=== PATIENT | female | born 1970 | race African-American/Black ===

== ENCOUNTER 2018-04-06 21:38 | Emergency (ER) | payer SELFPAY, OTHER ==
[2018-04-06 22:02] LABS: ADD MAN DIFF? NO
[2018-04-06 22:04] LABS: BASO % 1 % (0-3); EOS # 0.3 x10^3/uL (0.0-0.7); EOS % 6 % (0-3); HEMATOCRIT 40.7 % (36.0-47.0); HEMOGLOBIN 13.6 g/dL (12.0-15.5); LYMPH # 1.9 x10^3/uL (1.0-4.8); LYMPH % 40 % (24-48); MEAN CORPUSCULAR HEMOGLOBIN 31 pg (25-35); MEAN CORPUSCULAR HGB CONC 33 g/dL (31-37); MEAN CORPUSCULAR VOLUME 91 fL (79-100); MONO # 0.6 x10^3/uL (0.0-1.1); MONO % 14 % (0-9); NEUT # 1.9 x10^3uL (1.8-7.7); NEUT % 40 % (31-73); PLATELET COUNT 176 x10^3/uL (140-400); RED BLOOD COUNT 4.46 x10^6/uL (3.50-5.40); WHITE BLOOD COUNT 4.7 x10^3/uL (4.0-11.0)
[2018-04-06] MEDS: amLODIPine BESYLATE 5 MG TABLET PO (22:13)
[2018-04-06] MEDS: PROCHLORPERAZINE 10 MG/2 ML VIAL. IV (22:13)
[2018-04-06] MEDS: IV NORMAL SALINE 500ML BAG 500 ML IV (22:14)
[2018-04-06 22:17] LABS: ANION GAP 8 (6-14); BLOOD UREA NITROGEN 15 mg/dL (7-20); BUN/CREATININE RATIO 17 (6-20); CALCIUM 8.5 mg/dL (8.5-10.1); CARBON DIOXIDE 25 mmol/L (21-32); CHLORIDE 105 mmol/L (98-107); CREATININE 0.9 mg/dL (0.6-1.0); GFR 81.2; GLUCOSE 106 mg/dL (70-99); SODIUM 138 mmol/L (136-145)
[2018-04-06 22:23] LABS: ALBUMIN 3.6 g/dL (3.4-5.0); ALBUMIN/GLOBULIN RATIO 0.8 (1.0-1.7); ALK PHOS 97 U/L (46-116); ALT (SGPT) 30 U/L (14-59); AST (SGOT) 21 U/L (15-37); TOTAL BILIRUBIN 0.4 mg/dL (0.2-1.0); TOTAL PROTEIN 8.2 g/dL (6.4-8.2)
== END 2018-04-06 22:47 | disposition home or self-care (01) ==
LOC: ER 21:38
DX: R51 Headache (principal); I10 Essential (primary) hypertension; Z90.710 Acquired absence of both cervix and uterus; Z79.899 Other long term (current) drug therapy
CPT/HCPCS: 36415; 70450; 80053; 85025; 96374; 99285; J0780; J7040

== ENCOUNTER 2018-09-16 10:06 | Emergency (ER) | payer SELFPAY ==
[~2018-09-16] VITALS: Ht 167.6 cm; Wt 77.1 kg
[~2018-09-16 10:06] MED LIST: HYDR50TA6 PO; IBUP200T77 PO
[2018-09-16 10:40] VITALS: BP 143/88
--- NOTE | 2018-09-16 11:27 | RAD ---
3 view left wrist 09/16/2018 CLINICAL INDICATION: Fall with left wrist pain. COMPARISON: None. FINDINGS: No acute fracture or traumatic malalignment. Joint spaces maintained. Normal alignment of the carpal bones. Visualized soft tissues are unremarkable. IMPRESSION: No acute osseous abnormality. If there is focal snuffbox tenderness, immobilization and repeat radiograph in 10-14 days is recommended for radiographically occult scaphoid fracture. Electronically signed by: Cal Palmer MD (09/16/2018 11:24 AM) [id number]
--- NOTE | 2018-09-16 11:56 | PHYS DOC ---
Past Medical History Past Medical History: Hypertension, Other Additional Past Medical Histor: Eye Injury- Right Past Surgical History: Hysterectomy, Other Additional Past Surgical Histo: HERNIA SURGERY, Eye Surgery Alcohol Use: None Drug Use: None Adult General Chief Complaint Chief Complaint: MECHANICAL FALL [facility] HPI Patient is a 48 year old female who presents with pain to her right knee and left wrist after she fell down stairs proximately 3 days ago. The patient has been walking on the extremity with out problem. There is some mild swelling to the left wrist that she is concerned about. She states that the accident occurred at home. She denies loss of consciousness or any other injury. Review of Systems Review of Systems Constitutional: Denies fever or chills [] Respiratory: Denies cough or shortness of breath [] Cardiovascular: No additional information not addressed in HPI [] GI: Denies abdominal pain, nausea, vomiting, bloody stools or diarrhea [] : Denies dysuria or hematuria [] Musculoskeletal: See history of present illness Integument: Denies rash or skin lesions [] Neurologic: Denies headache, focal weakness or sensory changes [] Endocrine: Denies polyuria or polydipsia [] All other systems were reviewed and found to be within normal limits, except as documented in this note. Allergies Allergies Allergies Coded Allergies Type Severity Reaction Last Updated Verified No Known Drug Allergies 10/27/14 No Physical Exam Physical Exam Constitutional: Well developed, well nourished, no acute distress, non-toxic appearance. [] Neck: Normal range of motion, no tenderness, supple, no stridor. [] Cardiovascular:Heart rate regular rhythm, no murmur [] Lungs & Thorax: Bilateral breath sounds clear to auscultation [] Skin: Warm, dry, no erythema, no rash. [] Back: No tenderness, no CVA tenderness. [] Extremities: tenderness to right knee and left wrist with palpation, no ecchymosis noted to either extremity, no cyanosis, no clubbing, ROM intact, mild edema noted to left wrist, pulses and sensation are intact distal to injuries. [] Neurologic: Alert and oriented X 3, normal motor function, normal sensory function, no focal deficits noted. [] Psychologic: Affect normal, judgement normal, mood normal. [] Current Patient Data Vital Signs Vital Signs Date Time Temp Pulse Resp B/P (MAP) Pulse Ox O2 Delivery O2 Flow Rate FiO2 09/16/18 10:40 98.0 78 16 143/88 (106) 98 Room Air 98.0 EKG EKG [] Radiology/Procedures Radiology/Procedures []PATIENT: ERNIE VERA RACCOUNT: [id number]#: [id number] : 1970 LOCATION: ER AGE: 48 SEX: F EXAM STATUS: REG ER ORD. PHYSICIAN: ALBERTA TAVAREZ APRN REASON: pain after falling down steps PROCEDURE: WRIST 3V LEFT 3 view left wrist 09/16/2018 CLINICAL INDICATION: Fall with left wrist pain. COMPARISON: None. FINDINGS: No acute fracture or traumatic malalignment. Joint spaces maintained. Normal alignment of the carpal bones. Visualized soft tissues are unremarkable. IMPRESSION: No acute osseous abnormality. If there is focal snuffbox tenderness, immobilization and repeat radiograph in 10-14 days is recommended for radiographically occult scaphoid fracture. Electronically signed by: Car Palmer MD (09/16/2018 11:24 AM) [id number] DICTATED and SIGNED BY: CAR PALMER MD DATE: Course & Med Decision Making Course & Med Decision Making Pertinent Labs and Imaging studies reviewed. (See chart for details) [] Dragon Disclaimer Catina Disclaimer This electronic medical record was generated, in whole or in part, using a voice recognition dictation system. Departure Departure Impression: Primary Impression: Contusion Disposition: 01 HOME, SELF-CARE Condition: STABLE Referrals: NO PCP (PCP) Patient Instructions: Contusion Additional Instructions: You may take ibuprofen or Tylenol for pain. Use ice packs and rest the extremities. Follow-up your primary care provider for possible referral to orthopedics if not improving in 3 days. ALBERTA TAVAREZ APRN Sep 16, 2018 11:56
== END 2018-09-16 12:11 | disposition home or self-care (01) ==
LOC: ER 10:06
DX: S60.212A Contusion of left wrist, initial encounter (principal); S80.01XA Contusion of right knee, initial encounter; I10 Essential (primary) hypertension; Z90.710 Acquired absence of both cervix and uterus; W10.8XXA Fall (on) (from) other stairs and steps, initial encounter; Y93.01 Activity, walking, marching and hiking; Y92.009 Unspecified place in unspecified non-institutional (private) residence as the place of occurrence of the external cause; Y99.8 Other external cause status
CPT/HCPCS: 73110; 99281; 99284